=== PATIENT | male | born 1955 | race Caucasian/White ===

== ENCOUNTER 2016-12-23 23:32 | Emergency (ER) | payer MEDICARE ==
[~2016-12-23] VITALS: Ht 182.9 cm; Wt 113.6 kg
[~2016-12-23 23:32] MED LIST: ALBU18HF PO; ATOR80TA PO; CHOL10008 PO; FURO-128 PO; LISI-567 PO; METO-272 PO; POTA10CA42 PO; RIVA20TA PO; TAMS0.4C98 PO; TRAM50TA2 PO; TRAZ-118 PO
[2016-12-23 23:48] VITALS: BP 149/78; PULSE 76; RESP 18; O2SAT 99
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
[2016-12-24] MEDS ORDERED: Dexamethasone Inj 10 MG in 0.9% Sodium Chloride-Pha MIX 50 ML IV ONE (00:55)
[2016-12-24] MEDS ORDERED: Ondansetron 2 mg/mL 2 mL Inj IV PRN (00:55)
[2016-12-24] MEDS: HYDROmorphone 1 mg/mL Inj IVPUSH PRN ×2 (01:09→03:17)
[2016-12-24 01:13] LABS: BASOPHILS % (AUTO) 0.1 % (0-3); EOSINOPHILS % (AUTO) 0.5 % (0-5); MONOCYTES % (AUTO) 7.3 % (4-12); Mean Corpuscular Hemoglobin 32.9 pg (27.0-35.0); Mean Corpuscular Volume 94.5 fL (81-100); NEUTROPHILS % (AUTO) 65.1 % (40-74); Platelet Count 101 bil/L (150-400)
[2016-12-24 01:41] LABS: ERYTHROCYTE SEDIMENTATION RATE 18 mm/hr (0-30)
[2016-12-24] MEDS ORDERED: PRE20 PO (04:34)
[2016-12-24] MEDS ORDERED: TRAM50TA2 PO (04:34)
[2016-12-24 04:59] VITALS: BP 136/75; PULSE 68; RESP 18; O2SAT 97
--- NOTE | 2016-12-24 08:42 | DRSVH ---
PROCEDURE: MRI LUMBAR SPINE WITH AND WITHOUT CONTRAST ([id number]) INDICATIONS: severe L sciatic pain and acute muscle weakness TECHNIQUE: Noncontrast sagittal T1 spin echo and T2 fast spin echo, sagittal STIR, axial T1 and T2 fast spin ech o through the lumbar spine. In cases with scoliosis, additional coronal T2 fast spin echo may be per formed. After the administration of contrast, sagittal and axial T1 spin echo with fat saturation th rough the lumbar spine. COMPARISON: None. FINDINGS: Image quality: Suboptimal due to hardware artifact Alignment and curvature: Levocurvature centered at the L3-L4 level Marrow: Postsurgical changes from posterior spinal fixation from L3-L5 with interbody cage grafts. M arrow is of normal overall signal. Chronic appearing minimal anterior wedging of the T12 vertebral greer dy otherwise no acute vertebral body compression fractures. No suspicious marrow enhancement. Spinal cord: Conus medullaris terminates at the L1 level. Visualized spinal cord demonstrates deborah l signal, without suspicious enhancement. Paraspinous soft tissues: No paravertebral masses or abnormal enhancement. No discrete epidural flui d collection L1-L2: Mild broad-based posterior disc bulge and bilateral facet disease. Minimal canal narrowing. No definite foraminal stenosis L2-L3: Mild broad-based posterior disc bulge and bilateral facet disease. Mild canal narrowing. Proba ble moderate left and mild right foraminal stenosis although hardware artifact partially obscures thi s level. L3-L4: Bilateral facet disease. No definite canal stenosis. Mild left foraminal narrowing. The right neural foramen is not well seen due to hardware artifact L4-L5: No definite canal stenosis. Bilateral facet disease. The neural foramen are obscured by hardwa re artifact L5-S1: Minimal canal narrowing. Probable least mild/moderate bilateral foraminal stenoses although th is levels also partially obscured by hardware artifact. IMPRESSION: Suboptimal evaluation due to to hardware artifact from posterior spinal fixation from L3-L5. No epidural fluid collection or suspicious enhancement. No high-grade canal stenosis. Please note, the neuroforamen are not well seen at multiple locations due to hardware artifact, as ou tlined by spinal level above. Levocurvature Dictated by: Yong Bravo M.D. on 12/24/2016 at 8:33 Approved by: Yong Bravo M.D. on 12/24/2016 at 8:40
== END 2016-12-24 05:00 | disposition home or self-care (01) ==
LOC: SED 23:32
DX: M54.32 Sciatica, left side (principal); I25.10 Atherosclerotic heart disease of native coronary artery without angina pectoris; I25.2 Old myocardial infarction; I50.9 Heart failure, unspecified; Z86.73 Personal history of transient ischemic attack (TIA), and cerebral infarction without residual deficits; Z95.1 Presence of aortocoronary bypass graft; Z79.01 Long term (current) use of anticoagulants; F17.200 Nicotine dependence, unspecified, uncomplicated; Z88.6 Allergy status to analgesic agent; Z91.011 Allergy to milk products
CPT/HCPCS: 36415; 72158; 80053; 83735; 85025; 85651; 86140; 96374; 96375; 96376; 99285; A9585; J1100; J1170; J2405

== ENCOUNTER 2017-01-11 04:40 | Observation (INO) | payer MEDICARE ==
[2017-01-11] VITALS (9 sets, daily range): BP systolic 103–145; BP diastolic 52–83; PULSE 50–103; RESP 15–20; O2SAT 86–98
[~2017-01-11] VITALS: Ht 182.9 cm; Wt 114.9 kg
[~2017-01-11 04:40] MED LIST changes: +PRE20 PO
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
[2017-01-11] MEDS ORDERED: Nitroglycerin 50 mg/250 mL D5W 50,000 MCG in IV Premix 1 EACH IV ONE (05:00)
[2017-01-11] MEDS ORDERED: MeTOProlol 1 mg/mL 5 mL Inj IVPUSH PRN (05:00)
[2017-01-11] MEDS ORDERED: Ondansetron 2 mg/mL 2 mL Inj IVPUSH ONE (05:00)
[2017-01-11 05:38] LABS: INR 0.95 ratio
[2017-01-11 06:48] LABS: TROPONIN T 0.01 ug/L (0.0-0.011)
[2017-01-11 06:52] LABS: BASOPHILS % (AUTO) 0.1 % (0-3); EOSINOPHILS % (AUTO) 1.1 % (0-5); MONOCYTES % (AUTO) 5.5 % (4-12); Mean Corpuscular Hemoglobin 32.7 pg (27.0-35.0); NEUTROPHILS % (AUTO) 67.5 % (40-74); Platelet Count 127 bil/L (150-400)
[2017-01-11 07:00] LABS: Magnesium 1.9 mg/dL (1.6-2.6)
[2017-01-11] MEDS ORDERED: Alum-Mag Hydrox-Simeth 30 mL Suspension PO PRN ×2 (07:20→08:00)
[2017-01-11] MEDS ORDERED: Polyethylene Glycol (PEG) 17 Gm Powder PO PRN ×2 (07:20→08:00)
[2017-01-11] MEDS ORDERED: Senna-Docusate 8.6-50 mg Tablet PO PRN ×2 (07:20→08:00)
[2017-01-11] MEDS ORDERED: Ondansetron 2 mg/mL 2 mL Inj IVPUSH PRN ×3 (07:20→10:05)
[2017-01-11] MEDS ORDERED: Nitroglycerin 2% 1 Gm Ointment TOPICAL SCH (08:10)
[2017-01-11] MEDS ORDERED: LISI10TA PO (09:01)
[2017-01-11] MEDS ORDERED: METO25TA99 PO (09:02)
--- NOTE | 2017-01-11 09:04 | DRSVH ---
PROCEDURE: X-RAY CHEST ONE VIEW, PORTABLE ([id number]) INDICATIONS: Chest pain TECHNIQUE: One view of the chest was acquired. COMPARISON: [facility], CR, XR CHEST 1VW (PORTABLE), 06/06/2016, 23:05. FINDINGS: Surgical changes and devices: Status post CABG procedure Lungs and pleura: No pleural effusions or pneumothorax. Lungs are clear. Mediastinum: Mediastinal contours appear normal. Heart size is mildly enlarged Bones and chest wall: No suspicious bony lesions. Overlying soft tissues appear unremarkable. IMPRESSION: No acute cardiopulmonary disease process. Dictated by: Cindy Red MD, PhD on 01/11/2017 at 9:03 Approved by: Cindy Red MD, PhD on 01/11/2017 at 9:03
--- NOTE | 2017-01-11 09:22 | NUR ---
Admission Admit to room 3007 from ER via w/pilar MCDOWELL. Admission assessments completed in room by admission RN. Provider notified and assessed. Chest pressure to L arm 01/03 reported at that time. Nitro admin with slight improvement.
--- NOTE | 2017-01-11 09:44 | NUR ---
Admit nurse: Admit completed, med rec completed. Allergy sticker in place. Hx of falls with most recent fall in October 2016. C/o chest pressure 3/10 radiating to L shoulder, primary nurse and MD notified.
[2017-01-11] MEDS ORDERED: Albuterol 2.5 mg/3 mL Inhalation Solution NEB SCH (11:00)
[2017-01-11] MEDS ORDERED: MeTOProlol XL 25 mg ER24 Tablet PO SCH ×2 (12:50→20:30)
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
[2017-01-11 15:26] LABS: TROPONIN T < 0.010 ug/L (0.0-0.011)
--- NOTE | 2017-01-11 15:59 | PCM.DIMED ---
John Ritter DO 01/11/17 1559: Discharge Instructions Date of Service Jan 11, 2017 Dates of Hospitalization Jan 11, 2017 at 08:24 Discharge Diagnosis Discharge Diagnosis #Chest pressure, acute, #CAD status post CABG, #Persistent atrial fibrillation, #History of systolic heart failure, #Tobacco dependence, #Chronic back pain, Medication Instructions Please resume taking all your medications daily as instructed. Diet Heart Healthy Activity No restrictions Call your provider Fever or Chills, Shortness of breath, Chest pain, Weakness (unilateral) Patient Instructions Please follow up with your PCP within 1-2 weeks Please follow up with Dr. Torres in 2 weeks. Follow-up Provider: Omega Torres MD Follow-up with PCP in: 2 weeks Bam Bonilla DO 01/12/17 1305: Discharge Instructions Attending's Statement Read and agree John Ritter DO Jan 11, 2017 15:59 Bam Bonilla DO Jan 12, 2017 13:05
--- NOTE | 2017-01-11 16:02 | PCM.DC.MED ---
Discharge Summary Date of Service Jan 11, 2017 Dates of Hospitalization Date of Hospital Admission Jan 11, 2017 at 08:24 Date of Discharge: Jan 11, 2017 Providers: Admitting Physician: Lobo Fink DO Primary Care Physician: Medhat Benedict MD Attending Physician: Lobo Fink DO Diagnosis at Time of Discharge Diagnosis at Time of Discharge #Chest pressure, acute, #CAD status post CABG, #Persistent atrial fibrillation, #History of systolic heart failure, #Tobacco dependence, #Chronic back pain, Procedures XRay, CTs & MRIs IMPRESSION: No acute cardiopulmonary disease process. Brief History 61 yo M h/o CAD s/p CABG, Persistent Afib on Xarelto, CVA, and CHF who presented to the ED for complaints of left sided chest pressure with associated radiation into his left shoulder and back that began at 0430 this morning. He denies any triggers or, reports that he was getting ready for bed when the pressure came on. He specifically denies pain, and states that is more of a pressure-like sensation. To me, he denied any associated symptoms including nausea, vomiting, dizziness, or diaphoresis. He states the pressure sensation lasted for about 10-15 minutes and has been intermittently on and off since then. He also noted a very brief episode the day before. Patient reports that his chest pressure is unlike the substernal chest pain that lead to his previous CABGs. He reports that it is not reproducible with palpation. He has not taken any nitroglycerin because he reports that they are all at least 3 years old. He reports he has been compliant on his medications as prescribed by his senior safety support manager Dr. Torres. He denies any increase in shortness of breath, [place], or peripheral edema in the recent weeks. He has not had any infections and denies any cough or fevers. In the ED he was afebrile and normotensive. He had an EKG that was normal sinus rhythm rate in the 80s with no acute ST changes and nonspecific IVCD. Chest x-ray was reassuring and so were CBC and CMP. His troponin was negative 1. He was admitted for observation and ACS rule out due to his high-risk cardiac history. Hospital Course 61 yo M h/o CAD s/p CABG, Persistent Afib on Xarelto, CVA, and CHF who presented to the ED for complaints of left sided chest pressure with associated radiation into his left shoulder and back that began at 0430 this morning. He is admitted for chest pain rule out due to his extensive cardiac history. #Chest pressure, acute, POA Could represent unstable angina versus stable angina or is a manifestation of his atrial fibrillation. Patient did have an episode of 3/10 chest pressure during this examination and had nitroglycerin which mildly improved his symptoms. Troponins neg x 2 Nitrostat and morphine prn chest pain No events noted on CV Telemetry during stay EKG prn persistent chest pain Echocardiogram was planned but patient denied due to having a recent one performed 2 months ago Cardiology recommended outpatient follow up with Dr. Torres in 2 weeks. #CAD status post CABG, POA Plan to keep magnesium above 2 and potassium above 4 We will continue home medications: Metoprolol, lisinopril #Persistent atrial fibrillation, POA Patient has been in normal sinus rhythm Anticoagulated with Xarelto Monitored on telemetry #History of systolic heart failure, POA Last echocardiogram 2 months ago showed LVEF of 30%, with akinesis of the basal and mid septum and hypokinesis of anterior and apical region No signs or symptoms to indicate acute exacerbation heart failure, proBNP 588 on admission No diuretics were noted on med rec, but is noted in outpatient visit with Dr. Torres a month ago #Tobacco dependence, POA Patient refuses nicotine patch because it makes his blood pressure elevate #Chronic back pain, POA We will continue patient's tramadol Exam Vital Signs (Last) Date Time Temp Pulse Resp B/P Pulse Ox O2 Delivery O2 Flow Rate FiO2 01/11/17 13:39 36.6 88 20 132/79 97 Room Air Exam General: Obese male who appears in no acute distress, cooperative HEENT: Atraumatic, PERRLA, EOMI, oropharynx moist Neck: Soft, tender, no JVD noted CV: RRR, soft systolic murmur noted Respiratory: CTAB, normal effort Abdomen: Soft, nondistended, nontender, normoactive bowel sounds present MSK: Muscle strength grossly intact and equal, uses cane for ambulation, chronic left calf pain, Neuro: Alert and oriented, grossly intact, no acute focal weakness Skin: Warm, dry, intact Extremities: No clubbing or cyanosis, trace pedal edema noted Psych: Appropriate mood and affect Test 01/11/17 04:43 01/11/17 05:00 01/11/17 14:28 White Blood Count 7.4th/mm3 (3.8-10.1) Red Blood Count 4.50mil/mm3 (4.40-5.80) Hemoglobin 14.7g/dL (13.8-17.2) Hematocrit 42.3% (41.0-50.0) Mean Corpuscular Volume 94.0fL (81-100) Mean Corpuscular Hemoglobin 32.7pg (27.0-35.0) Mean Corpuscular Hemoglobin Concent 34.8% (32.0-37.0) Red Cell Distribution Width 14.4% (12.3-15.4) Platelet Count 127bil/L (150-400) Neutrophils (%) (Auto) 67.5% (40-74) Lymphocytes (%) (Auto) 25.3% (14-46) Monocytes (%) (Auto) 5.5% (4-12) Eosinophils (%) (Auto) 1.1% (0-5) Basophils (%) (Auto) 0.1% (0-3) Sodium Level 136mEq/L (134-144) Potassium Level 4.3mEq/L (3.5-5.2) Chloride Level 96mEq/L (97-108) Carbon Dioxide Level 23mmol/L (18-29) Blood Urea Nitrogen 14mg/dL (8-27) Creatinine 1.12mg/dL (0.76-1.27) Estimat Glomerular Filtration Rate 71mL/min (>59) Glucose Level 114mg/dL (60-99) Calcium Level 9.1mg/dL (8.5-10.1) Magnesium Level 1.9mg/dL (1.6-2.6) Total Bilirubin 0.4mg/dL (0.0-1.2) Aspartate Amino Transf (AST/SGOT) 18U/L (0-50) Alanine Aminotransferase (ALT/SGPT) 22U/L (0-44) Alkaline Phosphatase 79U/L (25-160) Total Protein 7.5g/dL (6.4-8.4) Albumin 4.1g/dL (3.4-5.0) Prothrombin Time 10.2sec (8.1-12.5) Prothromb Time International Ratio 0.95ratio Activated Partial Thromboplast Time 27.1sec (22.8-33.0) Pro-B-Type Natriuretic Peptide 588.9pg/mL (0-210) Hold Gan Top Tube Received (Received) Troponin T < 0.010ug/L (0.0-0.011) Thyroid Stimulating Hormone (TSH) 2.580uIU/mL (0.450-4.500) Discharge Medications Discharge Medications Albuterol Sulfate (Ventolin HFA Inhaler) 200 Puff/18 Gm Inhaler 2 PUFFS PO BID ( Reported) Cholecalciferol (Vitamin D3) (Vitamin D3) 1,000 Unit Tab.chew 1,000 UNIT PO DAILY (Reported) Lisinopril (Lisinopril) 10 Mg Tablet 10 MG PO HS (Reported) Metoprolol Succinate ER (Metoprolol Succinate ER) 25 Mg Tab.er.24h 25 MG PO BID (Reported) Rivaroxaban (Xarelto) 20 Mg Tablet 20 MG PO DAILY (Reported) Tamsulosin (Flomax) 0.4 Mg Capsule 0.4 MG PO HS Prescribed by: ADALGISA JADE DO Tramadol (Tramadol) 50 Mg Tablet 100 MG PO BID (Reported) As needed Trazodone (Trazodone) 100 Mg Tablet 400 MG PO HS PRN PRN Insomnia (Reported) Additional med instructions Please resume taking all your medications daily as instructed. Followup Plan Disposition: Home Discharge Diet: Heart Healthy Discharge Activity: No restrictions Patient Instructions Please follow up with your PCP within 1-2 weeks Please follow up with Dr. Torres in 2 weeks. Follow-up Provider: Omega Torres MD Follow-up with PCP in: 2 weeks Time spent 35 minutes Attending Statement I have seen and evaluated patient at bedside in addition to directly supervising care provided by resident physician. I agree with above documentation. Case reviewed with senior safety support manager,Dr. Gar, who agreed that in spite of significant cardiac ty there was no evidence of acute ACS of indication for further in patient evaluation. copies to: Omega Torres MD, Hong D DO Jan 11, 2017 16:02 Bam Bonilla DO Jan 12, 2017 13:07
--- NOTE | 2017-01-11 16:24 | CONS ---
[address] [address] CONSULTATION REPORT PATIENT: VAISHNAVI REINA : 1955 MR#: [id number] ADMIT: 01/11/2017 JOB ID: [id number] DATE OF SERVICE: 01/11/2017 CARDIOLOGY CONSULT: REASON FOR CONSULT: For the evaluation of chest pain. CHIEF COMPLAINT: Chest pressure. HISTORY OF PRESENT ILLNESS: This 61-year-old pleasant male who is a patient of Dr. Torres from Cardiology, who has a history of severe ischemic cardiomyopathy with LV ejection fraction 25% to 30% based on echocardiogram done in January 2016 and 30% +/- 5% based on echocardiogram in November 07, 2016, history of emergent two-vessel coronary artery bypass surgery in 1993 due to aortic dissection during catheterization, redo three-vessel coronary artery bypass surgery in 2006 at [facility], history of paroxysmal AFIB status post DC cardioversion May 2016, history of nonsustained ventricular tachycardia in May 2016, persistent tobacco abuse, essential hypertension, hyperlipidemia, on Xarelto for anticoagulation, history of predominantly systolic heart failure in the past, got admitted because of above-mentioned chief complaint. According to the patient this morning he was sitting, watching TV, and about 4:30 felt pressure on the left side of the chest which was on a scale of 1-10 about 7 in intensity. He had tingling and pain in the left shoulder as well. He did not have any nausea, vomiting, or sweating. No worsening shortness of breath. No stroke-like symptoms. He did not have nitroglycerin at home. Pain lasted about 10-15 minutes. He was seen in the ED. He received nitroglycerin, which helped him. He got admitted to the hospital. His first set of troponin was normal. Cardiology consult was sought. At present, he is lying on bed. He is not having any more chest pain. No PND, orthopnea, or fever, cough, expectoration, hemoptysis, or bleeding, or stroke-like symptoms. He had a perfusion study in June 2016. At that time there was small mild fixed defect in the apex without any significant reversible ischemia. PAST MEDICAL HISTORY: History of coronary artery disease with ischemic cardiomyopathy with LV ejection fraction 30% +/- 5% based on echocardiogram done on November 07, 2016, known history of coronary artery disease status post two-vessel bypass surgery in 1993 due to aortic dissection, redo three-vessel bypass in 2006 at [facility] details not available, paroxysmal AFIB status post DC cardioversion in May 2016, on Xarelto, persistent tobacco abuse, hypertension, hyperlipidemia, history of predominantly systolic congestive heart failure. PAST SURGICAL HISTORY: As stated above plus back surgery, appendicectomy, and a metal plate in the right lower extremity. ALLERGIES: SALICYLATE, TAPE, MILK. FAMILY HISTORY: Positive for coronary artery disease. MEDICATIONS: As per Dr. Torres's note, he was on: 1. Atorvastatin 20 mg daily. 2. Lasix 40 mg twice a day. 3. Lisinopril 10 mg daily. 4. Metoprolol succinate 25 mg twice a day. 5. Omeprazole 20 mg daily. 6. Aldactone 25 mg daily. 7. Tramadol 50 mg twice a day. 8. Xarelto 20 mg daily. 9. Ventolin inhalers. REVIEW OF SYSTEMS: Ten-point review of systems was obtained and is negative except as stated above. PHYSICAL EXAMINATION: Blood pressure 132/79, heart rate 88, respiratory rate 20, oxygen saturation room air 97%. HEENT: No significant anemia, jaundice. Neck: No apparent JVP. No obvious carotid bruit. Chest: No obvious crepitation or rhonchi. CVS: S1, S2 normal. No S3, no S4. Clinically no significant murmur. Abdomen: Obese. No obvious pulsatile mass felt. No obvious hepatosplenomegaly. Extremities: Mild bilateral pedal edema. Feeble distal pulses. Vascular: No evidence of critical limb ischemia. 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 Oriented to time, place, and person. No obvious motor or sensory deficit. LABORATORIES: Sodium 136, potassium 4.3, BUN 14, creatinine 1.12, with magnesium 1.9. Normal bilirubin, AST, ALT. C-reactive protein in November 2016 was 0.0. Troponin-T 1st set 0.010. ProBNP 588.9. Albumin 4.1. WBC 7.4, hemoglobin 14.7, platelets 127. The patient has chronic thrombocytopenia; in May 2016 it was 83. Polymorphs 67.5. X-ray chest: No acute pathology, lungs clear, mild cardiomegaly. EKG revealed sinus rhythm with evidence of left atrial enlargement, LVH, nonspecific ST-T changes. ST-T abnormalities less prominent than previous study. I do not see any obvious new ischemic EKG changes. ASSESSMENT AND PLAN: Episode of chest pain which has anginal component and lasted about 15 minutes with known history of coronary artery disease status post coronary artery bypass surgery in 1993 as well as redo bypass surgery with three vessels in 2006, history of aortic dissection during heart catheterization in 1993, paroxysmal atrial fibrillation status post cardioversion, on Xarelto, severe ischemic cardiomyopathy with LV ejection fraction 30% +/- 5%, history of essential hypertension, hyperlipidemia, persistent tobacco abuse, and history of nonsustained ventricular tachycardia in May 2016. Clinically the patient appears compensated. At present, he is not in gross congestive heart failure. Discussed with the patient further cardiac workup including repeat stress test if 2nd set of troponins turner in to be normal, or if it becomes abnormal left heart catheterization. However, the patient is not interested to undergo further cardiac testing. He is high risk for heart catheterization because of previous aortic dissection during heart catheterization. He already has appointment in cardiac rehab next week. Will recommend optimization of his medical management. We will recommend putting him back on spironolactone and antiplatelet therapy like Plavix on top of Xarelto as he has severe ischemic cardiomyopathy and coronary artery disease. He is already on tolerable dose of beta radames and MIKE inhibitor. Clinically, he does not appear to be in gross congestive heart failure. Consider long-acting nitroglycerin. If he has frequent chest pain consider adding calcium channel radames like amlodipine. If his 2nd set of troponin turns out to be normal, he would like to go home and see Dr. Torres in the clinic. I also discussed with him about AICD defibrillator, however he would like to talk to Dr. Torres. Preventive measures including complete cessation of smoking discussed. The patient understood the risks. At this point of time, Cardiology will sign off. Thanks for the cardiology consult. TIME: Total time spent including studying the old records, examining the patient, counseling, etc. about 75 minutes.
--- NOTE | 2017-01-11 16:25 | NUR ---
NAMRATA explained and signed, Copy of OTT and Medicare self administered medication information provided prior to discharge.
--- NOTE | 2017-01-11 16:47 | NUR ---
Discharge D/C to home following cardiology consult. D/C instructions, f/u instructions, care notes discussed and provided. Pt requesting to ambulate off floor with personal cane and left in no sign of distress with folder and all belongings.
== END 2017-01-11 16:45 | disposition home or self-care (01) ==
LOC: SED 04:40 → MPC 08:24
PROVIDERS: ADMIT Family Medicine; ATTEND Family Medicine
DX: R07.89 Other chest pain (principal); I25.10 Atherosclerotic heart disease of native coronary artery without angina pectoris; I48.1 Persistent atrial fibrillation; I11.0 Hypertensive heart disease with heart failure; I50.20 Unspecified systolic (congestive) heart failure; F17.210 Nicotine dependence, cigarettes, uncomplicated; M54.9 Dorsalgia, unspecified; E66.9 Obesity, unspecified; I82.409 Acute embolism and thrombosis of unspecified deep veins of unspecified lower extremity; I26.99 Other pulmonary embolism without acute cor pulmonale; Z86.73 Personal history of transient ischemic attack (TIA), and cerebral infarction without residual deficits; G47.00 Insomnia, unspecified; F41.9 Anxiety disorder, unspecified; I25.2 Old myocardial infarction; Z95.1 Presence of aortocoronary bypass graft; Z79.51 Long term (current) use of inhaled steroids; Z79.01 Long term (current) use of anticoagulants
CPT/HCPCS: 36415; 71010; 80053; 83735; 83880; 84443; 84484; 85025; 85610; 85730; 93005; 96374; 96375; 99285; G0378; J2270; J2405

== ENCOUNTER 2017-06-01 23:09 | Emergency (ER) | payer MEDICARE ==
[~2017-06-01] VITALS: Ht 182.9 cm; Wt 113.6 kg
[~2017-06-01 23:09] MED LIST changes: -ATOR80TA PO; -FURO-128 PO; -LISI-567 PO; +LISI10TA PO; -METO-272 PO; +METO-386 PO; -POTA10CA42 PO; -PRE20 PO
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
[2017-06-01 23:27] VITALS: BP 193/108; PULSE 89; RESP 22; O2SAT 97
[2017-06-01] MEDS ORDERED: Nitroglycerin 2% 1 Gm Ointment TOPICAL SCH (23:35)
[2017-06-01 23:53] LABS: BASOPHILS % (AUTO) 0.3 % (0-3); EOSINOPHILS % (AUTO) 0.8 % (0-5); MONOCYTES % (AUTO) 9.3 % (4-12); Mean Corpuscular Hemoglobin 31.5 pg (27.0-35.0); Mean Corpuscular Volume 94 fL (81-100); NEUTROPHILS % (AUTO) 56.9 % (40-74); Platelet Count 110 bil/L (150-400)
[2017-06-02] MEDS ORDERED: HYDROmorphone 0.5 mg/0.5 mL iSecure Syringe IVPUSH PRN
[2017-06-02 00:10] VITALS: BP 134/59; PULSE 66; RESP 16; O2SAT 96
[2017-06-02 00:14] LABS: TROPONIN T 0.01 ug/L (0.0-0.011)
[2017-06-02 00:26] LABS: Magnesium 1.9 mg/dL (1.6-2.6)
[2017-06-02 01:01] VITALS: BP 147/84; PULSE 73; RESP 19; O2SAT 95
[2017-06-02 01:48] LABS: Mean Corpuscular Volume 93.7 fL (81-100)
[2017-06-02 01:49] LABS: BASOPHILS % (AUTO) 0.2 % (0-3); EOSINOPHILS % (AUTO) 0.8 % (0-5); MONOCYTES % (AUTO) 8.3 % (4-12); Mean Corpuscular Hemoglobin 31.9 pg (27.0-35.0); Platelet Count 104 bil/L (150-400)
[2017-06-02 01:59] VITALS: BP 129/68; PULSE 102; RESP 25
[2017-06-02 03:05] VITALS: BP 120/66; PULSE 97; RESP 17; O2SAT 96
--- NOTE | 2017-06-02 14:23 | DRSVH ---
PROCEDURE: X-RAY CHEST ONE VIEW, PORTABLE ([id number]) INDICATIONS: cp TECHNIQUE: One view of the chest was acquired. COMPARISON: [facility], CR, XR CHEST 1VW (PORTABLE), 01/11/2017, 4:53. FINDINGS: Surgical changes and devices: Median sternotomy. Lungs and pleura: No pleural effusions or pneumothorax. Lungs are clear. Mediastinum: Mediastinal contours appear normal. Heart size is enlarged. Bones and chest wall: No suspicious bony lesions. Overlying soft tissues appear unremarkable. IMPRESSION: No acute cardiopulmonary disease. Dictated by: Jon Correia [facility] Interpreted: Medhat Hollis MD on 06/02/2017 at 8:22 Approved by: Medhat Hollis M.D. on 06/02/2017 at 14:22
== END 2017-06-02 03:07 | disposition home or self-care (01) ==
LOC: SED 23:09
DX: R42 Dizziness and giddiness (principal); I11.0 Hypertensive heart disease with heart failure; I50.9 Heart failure, unspecified; I48.0 Paroxysmal atrial fibrillation; I25.10 Atherosclerotic heart disease of native coronary artery without angina pectoris; I25.5 Ischemic cardiomyopathy; J44.9 Chronic obstructive pulmonary disease, unspecified; R07.89 Other chest pain; F17.200 Nicotine dependence, unspecified, uncomplicated; Z86.73 Personal history of transient ischemic attack (TIA), and cerebral infarction without residual deficits; Z95.1 Presence of aortocoronary bypass graft; Z79.01 Long term (current) use of anticoagulants; Z88.8 Allergy status to other drugs, medicaments and biological substances; Z91.011 Allergy to milk products; Z91.048 Other nonmedicinal substance allergy status
CPT/HCPCS: 36415; 71010; 80053; 83735; 84484; 85014; 85018; 85025; 93005; 96374; 96375; 99285; J1170; J2270